=== PATIENT | male | born 1950 | race African-American/Black ===

== ENCOUNTER 2017-03-15 10:56 | Inpatient (IN) | payer MEDICARE, OTHER ==
[~2017-03-15] VITALS: Ht 177.8 cm; Wt 68.2 kg
[2017-03-15] MEDS ORDERED: SODIUM CHLORIDE 0.9% 1000ML BAG (SEPSIS BOLUS) IV ONE (11:45)
[2017-03-15 12:09] LABS: BASOPHILS % 1.2 % (0.0-2.0); EOSINOPHILS % 1.3 % (0.0-5.0); HEMATOCRIT. 37.9 % (42.0-52.0); LYMPHOCYTES % 34.4 % (20.0-50.0); MEAN CORPUSCULAR HEMOGLOBIN 30.2 pg (28.0-32.0); MEAN PLATELET VOLUME 8.4 fl (7.4-10.4); MONOCYTES % 5.5 % (2.0-8.0); NEUTROPHILS % 57.6 % (40.0-76.0); PLATELET 197 x1000/uL (130-400); RED BLOOD CELL COUNT 4.31 mill/uL (4.7-6.1); RED CELL DISTRIBUTION WIDTH 12.7 % (11.6-14.6)
[2017-03-15 12:15] LABS: INR 1.1; PARTIAL THROMBOPLASTIN TIME 29.6 sec (23.4-31.0); PROTHROMBIN TIME 11.4 sec (9.4-11.6)
[2017-03-15 12:22] LABS: CARBON DIOXIDE 27 mEq/L (21-32); CHLORIDE 104 mEq/L (98-107); TROPONIN I < 0.02 ng/mL (0.00-0.04)
[2017-03-15] MEDS ORDERED: CLONIDINE 0.2MG TABLET PO ONE (14:15)
[2017-03-15] MEDS ORDERED: ASPIRIN 325MG EC TABLET PO ONE (15:30)
[2017-03-15] MEDS ORDERED: HYDROCODONE/ACETAMINOPHEN 5/325MG TABLET PO PRN (15:45)
[2017-03-15] MEDS ORDERED: ACETAMINOPHEN 325MG TABLET PO PRN (15:45)
[2017-03-15] MEDS ORDERED: IPRATROPIUM/ALBUTEROL 0.5-3(2.5)MG/3ML NEB INH PRN (15:45)
[2017-03-15] MEDS ORDERED: HYDRALAZINE 20MG/ML VIAL IV SCH (20:30)
[2017-03-15 22:30] VITALS: BP_SYST 183; BP_SYST 189; BP_DIAS 91; BP_DIAS 94
[2017-03-15 22:40] VITALS: BP 173/86
[2017-03-15 23:01] LABS: CREATINE KINASE 71 IU/L (39-308); TROPONIN I < 0.02 ng/mL (0.00-0.04)
[2017-03-15] MEDS ORDERED: MVI, ADULT NO.1 10 ML, FOLIC ACID 1 MG, THIAMINE HCL 100 MG in SODIUM CHLORIDE 0.9% 1,0... IV NR ×4 (23:30)
[2017-03-16] VITALS (15 sets, daily range): BP systolic 114–182; BP diastolic 31–108
[2017-03-16] MEDS: CLONIDINE 0.1MG TABLET PO PRN ×3 (02:19→22:15)
[2017-03-16] MEDS: HYDRALAZINE 20MG/ML VIAL IV PRN (06:30)
[2017-03-16 07:15] LABS: BASOPHILS % 0.4 % (0.0-2.0); HEMATOCRIT. 36.7 % (42.0-52.0); HEMOGLOBIN. 12.5 g/dL (14.0-18.0); MEAN CORPUSCULAR HEMOGLOBIN 29.8 pg (28.0-32.0); MEAN CORPUSCULAR VOLUME 87.7 fL (80.0-94.0); MEAN PLATELET VOLUME 8.9 fl (7.4-10.4); MONOCYTES % 5.9 % (2.0-8.0); NEUTROPHILS % 55.7 % (40.0-76.0); PLATELET 178 x1000/uL (130-400); RED BLOOD CELL COUNT 4.18 mill/uL (4.7-6.1); RED CELL DISTRIBUTION WIDTH 12.8 % (11.6-14.6)
[2017-03-16 07:40] LABS: CHLORIDE 106 mEq/L (98-107)
[2017-03-16 08:40] LABS: CARBON DIOXIDE 23 mEq/L (21-32); CREATINE KINASE 79 IU/L (39-308); HDL CHOLESTEROL 41 mg/dL (40-59); LDL CHOLESTEROL 121 mg/dL (5-100); TROPONIN I < 0.02 ng/mL (0.00-0.04)
[2017-03-16] MEDS ORDERED: ENOXAPARIN 40MG/0.4ML SYR SUBCUT SCH (09:00)
[2017-03-16] MEDS ORDERED: PNEUMOCOCCAL 23-VAL P-SAC VAC 0.5 ML IM ONE (10:00)
[2017-03-16] MEDS ORDERED: INFLUENZA VIRUS VACCINE 0.5ML SYR IM ONE (10:00)
[2017-03-17] VITALS: BP 159/78
[2017-03-17 01:00] VITALS: BP 161/85
[2017-03-17] MEDS: HYDRALAZINE 20MG/ML VIAL IV PRN (01:58)
[2017-03-17 02:28] VITALS: BP 151/71
[2017-03-17 03:41] VITALS: BP 169/94
[2017-03-17 03:45] VITALS: BP 169/94
== END 2017-03-17 04:04 | DRG 948 ==
LOC: ER 11:20 → 3WST 11:38 → INTOOBSV 11:38 → OBSVTOIN 11:38 → EDBEDREQ 14:18 → CANRESERV 16:01 → ENRESERV 16:01
PROVIDERS: ADMIT Internal Medicine; ATTEND Internal Medicine
DX: R53.1 Weakness (principal); I10 Essential (primary) hypertension; R62.7 Adult failure to thrive; Z60.2 Problems related to living alone; Z86.73 Personal history of transient ischemic attack (TIA), and cerebral infarction without residual deficits
CPT/HCPCS: 36415; 70450; 71010; 80053; 80061; 82550; 83605; 84439; 84443; 84484; 85025; 85610; 85730; 87040; 90732; 93005; 96361; 96374; 96375; 97162; 99285; C1893; J0360; J1650; J3411; J3490; J7030; J7050